=== PATIENT | male | born 1995 | race Two or more races ===

== ENCOUNTER 2024-11-27 17:57 | Emergency (ER) | payer SELFPAY ==
[2024-11-27 18:54] VITALS: PULSE 110; RESP 18; O2SAT 98
[2024-11-27 19:54] VITALS: BP 149/77; PULSE 75; RESP 16; TEMP 37.2; O2SAT 95; BMI 25.9
--- NOTE | 2024-11-27 19:58 | XR_ITS ---
Examination: CT brain head without contrast. 2-D sagittal coronal reconstructions Date and time of exam:November 27, 20242009 hrs. Indications: Altered mental status hallucinations today CTDI: vol (mGy):49.6 DLP: (mGycm):1074 Technique: Multiple CT axial sections of the brain have been obtained, 5 mm slice thickness. Contrast has not been administered. 2-D sagittal, coronal reconstructions have been obtained Low dose protocols were performed. One or more of the following dose reduction techniques were used; automated exposure control, adjustment of the mA and/or KV according to patient size, use of iterative reconstruction technique. Findings: No significant ventricular enlargement. Intra-axial or extra-axial hemorrhage density is not seen. No mass effect or midline shift Basal cisterns are not remarkable. Fourth ventricle is midline. Cranial vault intact. Impression: Negative for acute hemorrhage, mass effect or midline shift Advise clinical correlation and follow-up accordingly
--- NOTE | 2024-11-27 19:59 | PD.EDRME ---
Rapid Medical Screening Exam RME Arrival date/time: 11/27/24 17:57 29-year-old male LISA presents emergency department for erratic behavior and hallucinations at worksite. Chief Complaint: Psychiatric Symptoms Time Seen by Provider: 11/27/24 19:49 Vital signs: Vital Signs Temperature 98.9 F 11/27/24 19:54 Pulse Rate 75 11/27/24 19:54 Respiratory Rate 16 11/27/24 19:54 Blood Pressure 149/77 H 11/27/24 19:54 Pulse Oximetry (%) 95 11/27/24 19:54 Oxygen Delivery Method Room Air 11/27/24 19:54 Vital signs reviewed by provider: Yes
[2024-11-27 20:58] LABS: Amphetamine/Methamp Scrn,U Negative (Negative); Barbiturate Screen,Urine Negative (Negative); Benzodiazepines Screen,Urine Negative (Negative); Benzoylecgonine Screen, Ur Negative (Negative); Fentanyl Screen,Urine Negative (Negative); Opiate Screen,Urine Negative (Negative); THC Screen,Urine Positive (Negative)
--- NOTE | 2024-11-27 21:09 | PD.EDADULT ---
ED General RME/HPI General Chief complaint: Psychiatric Symptoms Stated complaint: HALLUCINATIONS Time Seen by Provider: 11/27/24 19:49 Arrival date/time: 11/27/24 17:57 CC: Hearing voices in his head stating that he is going to be killed HPI first time this never happened patient admits to marijuana denies any street drugs alcohol. No prior history of similar events denies suicidal homicidal ideation. Currently the voices in his head are gone. Patient is awake alert oriented lucid Faroese-speaking not in any acute distress. RME / HPI RME / HPI narrative: 11/27/24 17:57 29-year-old male LISA presents emergency department for erratic behavior and hallucinations at worksite. Related Data Allergies Allergy/AdvReac Type Severity Reaction Status Date / Time No Known Allergies Allergy Verified 11/27/24 18:57 Review of Systems Review of Systems Narrative Review of Systems: GEN: No fever, no chills, no weight loss EYES: No discharge, no visual changes, no pain HEENT: No ear pain, no congestion, no sore throat PULM: No shortness of breath, no cough, no congestion CV: No chest pain, no dyspnea on exertion, no palpitations GI: No nausea, no vomiting, no diarrhea, no pain, no constipation : No frequency, no urgency, no dysuria MUSC/SKEL: No joint pain, no back pain SKIN: No rash PSYCH: + hallucinations, no depression HEME/LYMPH: No easy bleeding or bruising tendencies NEURO: No weakness, no headache Past Medical History Social History SMOKING STATUS: Never smoker ED Exam Narrative Physical exam: [General: Not in any acute distress Head normocephalic HEENT: Within acceptable limits Neck is supple nontender Chest equal chest rise nontender to palpation Respiratory: Clear to auscultation no wheezes crackles or rubs CV: Rate rhythm is regular no murmurs rubs or clicks Abdomen is soft nontender no masses positive bowel sounds all 4 quadrants Back: No CVA tenderness no spinous process tenderness from cervical spine thoracic and lumbar spine Skin: Intact no petechiae rash induration ulceration or crepitus Extremities: Moving all extremity against resistance cap refill less than 2 seconds neurosensory intact Neuro: Awake alert oriented x3 Glascow coma 15 no focal deficits] Course Quality Measures none Orders Category Date Time Status CT head/brain wo con Stat Exams 11/27/24 19:58 Completed Alcohol, Blood Medical Stat Lab 11/27/24 20:56 Completed CBC Stat Lab 11/27/24 20:56 Completed CMP [Comprehensive Metabolic Panel] Stat Lab 11/27/24 20:56 Completed Drug Screen,Urine Stat Lab 11/27/24 20:09 Completed Vital Signs Vital signs: Vital Signs Temperature 98.9 F 11/27/24 19:54 Pulse Rate 75 11/27/24 19:54 Respiratory Rate 16 11/27/24 19:54 Blood Pressure 149/77 H 11/27/24 19:54 Pulse Oximetry (%) 95 11/27/24 19:54 Oxygen Delivery Method Room Air 11/27/24 19:54 [facility] Patient data External records reviewed:: [facility] previous records Clinical information provided by:: patient Social determinants that could affect healthcare access:: none Patient has the following chronic illnesses:: None How is presenting disease/condition affected by chronic disease/condition?: uneffected by Evaluation data The following diagnostics were reviewed and interpreted by me:: lab results and radiology exam(s) Lab and/or radiology exams considered but not ordered:: CT head is unremarkable for any acute finding as interpreted by me read by radiology UDS is positive for THC. CBC shows mild leukocytosis no anemia thrombocytopenia CMP shows no acute electrolyte imbalances renal impairment transaminitis or T. bili elevation. Interpretation Summary: Paranoid hallucinations now resolved Medications Medications considered but not ordered:: None Medication administrations:: None Consultations Consultation(s) initiated? (list below): No Diagnosis Differential Diagnosis ED Complaint MDM: Polysubstance abuse alcohol abuse paranoid delusions Most likely diagnosis given after review of the tests above:: Paranoid hallucinations Admission Indicated Admission indicated?: not indicated Explain why admission is indicated or not indicated:: Stable for discharge Admission Request Was there a request for admission?: No Disposition Plan Disposition Plan: Discharge Discharge Attestation Discharge Attestation: The patient and all family members were given an opportunity to ask questions and understood the discharge instructions. Discharge instructions specifically effects, indications for sooner follow up or return to the emergency department, and the expected course of current diagnosis. Patient condition: Stable Medical Decision Making Differential Diagnosis Differential Diagnosis: Polysubstance abuse alcohol abuse paranoid delusions Lab Data 11/27/24 20:56 11/27/24 20:56 Labs: Lab Results 11/27/24 11/27/24 Range/Units 20:09 20:56 WBC 11.2 H (3.8-10.6) Thou/mm3 RBC 4.76 (4.50-5.90) Miln/mm3 Hgb 13.7 (13.5-16.0) g/dL Hct 39.3 L (41.0-53.0) % MCV 83 (80-100) fL MCH 28.8 (25.0-35.0) pg MCHC 34.9 (31.0-37.0) g/dl RDW Std Deviation 38.9 (35.1-43.9) fL Plt Count 328 (140-440) Thou/mm3 Neut % (Auto) 68 (37-80) % Lymph % (Auto) 20 (10-50) % [place] % (Auto) 11 (0-12) % Eos % (Auto) 0 (0-10) % Baso % (Auto) 0 (0-2.5) % Neut # (Auto) 7.6 (1.8-7.7) Thou/mm3 Lymph # (Auto) 2.3 (1.0-4.8) Thou/mm3 [place] # (Auto) 1.2 H (0.0-0.8) Thou/mm3 Eos # (Auto) 0.0 (0.0-0.5) Thou/mm3 Baso # (Auto) 0.0 (0.0-0.2) Thou/mm3 Immature Gran # (Auto) 0.05 H (0.00-0.00) Thou/mm3 Absolute Nucleated RBC 0.00 (0.00-0.00) Thou/mm3 Immature Gran % 0 (0-0) % Nucleated RBC % 0 (0) /100 WBC Sodium 142 (136-145) mMol/L Potassium 3.3 L (3.4-5.1) mMol/L Chloride 104 (98-107) mMol/L Carbon Dioxide 26.5 (20.0-31.0) mMol/L Anion Gap 12 (7-16) BUN 15 (9-23) mg/dL Creatinine 1.0 (0.6-1.3) mg/dL Estim Creat Clear Calc 94.8 (>60) mL/min eGFR > 60 (60 - ) See Note BUN/Creatinine Ratio 15 (12-20) Ratio Glucose 100 (74-106) mg/dL Calculated Osmolality 283 (275-295) Calcium 10.0 (8.3-10.6) mg/dL Corrected Calcium 10.0 (8.5-10.1) mg/dL Total Bilirubin 0.9 (0.3-1.2) mg/dL AST 23 (0-34) U/L ALT 28 (10-49) U/L Alkaline Phosphatase 87 (46-116) U/L Total Protein 7.5 (5.7-8.2) gm/dL Albumin 5.0 (3.5-5.0) gm/dL Globulin 2.5 (2.3-3.5) gm/dL Albumin/Globulin Ratio 2.0 (1.2-2.2) Urine Opiates Screen Negative (Negative) Urine Fentanyl Screen Negative (Negative) Ur Barbiturates Screen Negative (Negative) U Amphetamin/Meth Scrn Negative (Negative) U Benzodiazepines Scrn Negative (Negative) U Cocaine Metab Screen Negative (Negative) U Marijuana (THC) Screen Positive A (Negative) Ethyl Alcohol < 3.0 (0-10.0) mg/dL Discharge Plan Plan Patient Disposition: HOME (Self Care) Problem List Clinical Impression: Paranoia Patient/Caregiver Discharge Instructions Education Materials: Understanding Delusional Disorders Print Language: Faroese Stand Alone Forms: Award Info., Work/School Release, Patient Portal Info Letter PA/FINANCIAL ASSISTANCE SPECIALIST Supervising Physician PA/WAYNE Supervising Physician: Kirk Holbrook ENP
[2024-11-27 21:36] LABS: Basophils % (Auto) 0 % (0-2.5); Eosinophils % (Auto) 0 % (0-10); Hematocrit 39.3 % (41.0-53.0); Hemoglobin 13.7 g/dL (13.5-16.0); Immature Granulocytes % (Auto) 0 % (0-0); Immature Granulocytes Auto 0.05 Thou/mm3 (0.00-0.00); Lymphocytes # (Auto) 2.3 Thou/mm3 (1.0-4.8); Lymphocytes % (Auto) 20 % (10-50); Mean Corpuscular HGB Conc 34.9 g/dl (31.0-37.0); Mean Corpuscular Hemoglobin 28.8 pg (25.0-35.0); Mean Corpuscular Volume 83 fL (80-100); Monocytes # (Auto) 1.2 Thou/mm3 (0.0-0.8); Monocytes % (Auto) 11 % (0-12); Neutrophils # (Auto) 7.6 Thou/mm3 (1.8-7.7); Neutrophils % (Auto) 68 % (37-80); Nucleated Red Blood Cell % 0 /100 WBC (0); Platelet Count 328 Thou/mm3 (140-440); RDW Standard Deviation 38.9 fL (35.1-43.9); Red Blood Count 4.76 Miln/mm3 (4.50-5.90); White Blood Count 11.2 Thou/mm3 (3.8-10.6)
[2024-11-27 22:01] LABS: Alanine Aminotransferase 28 U/L (10-49); Alcohol, Blood Medical < 3.0 mg/dL (0-10.0); Alkaline Phosphatase 87 U/L (46-116); Anion Gap 12 (7-16); Aspartate Amino Transferase 23 U/L (0-34); BUN/Creatinine Ratio 15 Ratio (12-20); Bilirubin,Total 0.9 mg/dL (0.3-1.2); Blood Urea Nitrogen 15 mg/dL (9-23); Carbon Dioxide 26.5 mMol/L (20.0-31.0); Chloride 104 mMol/L (98-107); Estimated Creatinine Clearance 94.8 mL/min (>60); Globulin 2.5 gm/dL (2.3-3.5); Glucose 100 mg/dL (74-106); Osmolality,Calculated 283 (275-295); Potassium 3.3 mMol/L (3.4-5.1); Sodium 142 mMol/L (136-145); Total Protein 7.5 gm/dL (5.7-8.2); eGFR > 60 See Note
== END 2024-11-27 22:30 | disposition home or self-care (01) ==
PROVIDERS: Emergency Provider Emergency Medicine
DX: F22 Delusional disorders (principal); R41.82 Altered mental status, unspecified
CPT/HCPCS: 36415; 70450; 80053; 80307; 80320; 85025; 99284; G0480